=== PATIENT | male | born 1990 | race Caucasian/White ===

== ENCOUNTER 2019-11-24 18:18 | Emergency (ER) | payer SELFPAY ==
--- NOTE | 2019-11-24 18:57 | ED.ALCOHOL ---
HPI - Alcohol General Chief Complaint: Alcohol Stated Complaint: intoxication Source: patient Mode of arrival: ambulatory Limitations: no limitations History of Present Illness HPI narrative: pt is a 29 yo male who presents with intoxication. he was derinking at the bar, and was in a vehicle to go home, but he almost passed out and the shuttle bus driver was scared, so they called EMS. Pt very intoxicated. no trauma, and beligerant. He does not want to be here and wants released complaint: alcohol intoxication Last drink: just [employer] Chronic alcohol use: Yes Recent trauma: No Related Data Allergies Allergy/AdvReac Type Severity Reaction Status Date / Time codeine Allergy Unknown Verified 05/04/15 14:02 Penicillins AdvReac Unknown NAUSEA Verified 04/05/16 07:32 Review of Systems Review of Systems: Narrative: pt not really cooperative at all. All systems reviewed & are unremarkable except as noted in HPI and below PMFSH Social History Social History Smoking status: Never smoker Alcohol intake: current Alcohol use details: heavy Living arrangements: with family Occupation/Education: unemployed Exam Const: General: no acute distress and alert (intox) Nutritional Appearance: well nourished HENMT: Head: normal to inspection Eyes: Conjunctivae: conjunctivae normal Pupils: Equal, round and reactive pupils present Neck: Neck: normal visual inspection Chest: Chest palpation & inspection: normal inspection of the chest Resp: Effort & Inspection: normal respiratory effort Auscultation: clear to auscultation bilaterally Cardio: Rate: regular rate Rhythm: regular rhythm GI: GI Palp: Yes Soft to palpation and No Tenderness to palpation present (GI) Skin: General skin exam: normal color Course Course Emergency Course: father here and he will take him home and watch him Discharge Plan Discharge Clinical Impression: Alcoholic intoxication Patient Disposition: Home, Self-Care Condition: Stable Instructions: Antibiotic Form, Abuse of Alcohol (ED), Alcohol Intoxication (ED) Follow-up/Referrals: UNKNOWN,DOCTOR [Primary Care Provider] - Time of Disposition: 19:01
== END 2019-11-24 18:25 | disposition left against medical advice (07) ==
PROVIDERS: Emergency Provider Emergency Medicine
DX: F10.129 Alcohol abuse with intoxication, unspecified (principal)
CPT/HCPCS: 99281; 99282

== ENCOUNTER 2023-04-15 11:06 | Outpatient (CLI) | payer OTHER, SELFPAY ==
[2023-04-15 11:23] LABS: Basophils Absolute Auto 0.05 K/mm3 (0.00-0.10); Basophils Percent Auto 0.5 % (0.0-1.0); Eosinophils Absolute Auto 0.01 K/mm3 (0.02-0.50); Eosinophils Percent Auto 0.1 % (1.0-6.0); Hematocrit 50.2 % (40.0-54.0); Hemoglobin 16.5 g/dL (14.0-18.0); Immature Granulocyte Absolute 0.02 K/mm3 (0.00-0.00); Immature Granulocyte Percent A 0.2 % (0.0-0.0); Lymphocytes Absolute Auto 1.37 K/mm3 (1.10-4.50); Mean Corpuscular HGB Conc 32.9 g/dL (32.0-36.0); Mean Corpuscular Hemoglobin 29.5 pg (27.0-31.0); Mean Corpuscular Volume 89.8 fL (78.0-102.0); Mean Platelet Volume 10.3 fl (8.7-11.0); Monocytes Percent Auto 5.1 % (2.0-11.0); Neutrophils Absolute Auto 7.9 K/mm3 (1.7-7.2); Neutrophils Percent Auto 80.1 % (50.0-70.0); Platelet Count Result 324 K/mm3 (150-420); Red Blood Count 5.59 M/mm3 (4.70-6.10); Red Cell Distribution Width 13.3 % (11.6-14.4); White Blood Count 9.8 K/mm3 (4.8-10.8)
[2023-04-15 12:29] LABS: Alanine Aminotransferase 37 U/L (16-63); Albumin Level 4.4 g/dL (3.4-5.0); Alkaline Phosphatase 55 U/L (46-116); Amylase 44 U/L (25-115); Anion Gap 12 mmol/L (8-16); Aspartate Amino Transferase 13 U/L (15-37); Blood Urea Nitrogen 15 mg/dL (7-18); Calcium 9.2 mg/dL (8.5-10.1); Carbon Dioxide 28 mmol/L (21-32); Chloride 96 mmol/L (98-108); Estimated Glomerular Filt Rate > 60; Free T3 2.88 pg/mL (2.18-3.98); Free T4 Free Thyroxine 0.99 ng/dL (0.76-1.46); Glucose 114 mg/dL (70-99); Lipase 21 U/L (16-77); Osmolality Calculated 283 mOsm/kg (285-295); Potassium 4.6 mmol/L (3.5-5.1); Sodium 136 mmol/L (136-145); Total Protein 8.2 g/dL (6.4-8.2)
[2023-04-15 12:37] LABS: Appearance Urine Clear (Clear); Bilirubin Urine 1+ (Negative); Blood Urine Negative (Negative); Color Urine Yellow (Yellow); Glucose Urine UA Negative (Negative); Ketones Urine 2+ (Negative); Leukocyte Esterase Ur Negative (Negative); Nitrate Urine Negative (Negative); Protein Urine Trace (Negative); pH Urine 6.5 (5.0-8.0)
[2023-04-15 12:43] LABS: Add Urine Microscopic? YES; Bacteria Urine Trace /hpf; RBC Urine None seen /hpf (0-2); WBC Urine None seen /hpf (0-3)
== END 2023-04-15 11:07 | disposition home or self-care (01) ==
LOC: CHSLAB 11:09
PROVIDERS: PCP Internal Medicine; Visit Provider Internal Medicine
DX: Z00.00 Encounter for general adult medical examination without abnormal findings (principal); R63.0 Anorexia; F41.9 Anxiety disorder, unspecified
CPT/HCPCS: 36415; 80053; 81001; 82150; 83690; 84439; 84443; 84481; 85025